=== PATIENT | female | born 1960 | race Caucasian/White ===

== ENCOUNTER 2017-05-11 23:27 | Emergency (ER) | payer OTHER ==
[~2017-05-11] VITALS: Ht 165.1 cm; Wt 106.8 kg
[~2017-05-11 23:27] MED LIST: NOCURR
[2017-05-12] MEDS ORDERED: ALBU8HFA IH (00:25)
[2017-05-12] MEDS ORDERED: [UNRECOGNIZED DRUG - REMARK] PO (00:25)
[2017-05-12] MEDS ORDERED: TraMADol HCL 50 MG TABLET PO ONE (05:00)
[2017-05-12] MEDS ORDERED: AMOXICILLIN TRIHYDRATE 250 MG CAPSULE PO ONE (05:00)
[2017-05-12 05:25] VITALS: BP 160/90
== END 2017-05-12 05:40 | disposition home or self-care (01) ==
LOC: EMS 23:28
DX: H65.92 Unspecified nonsuppurative otitis media, left ear (principal); R59.1 Generalized enlarged lymph nodes; I10 Essential (primary) hypertension; E03.9 Hypothyroidism, unspecified; F17.210 Nicotine dependence, cigarettes, uncomplicated; F12.90 Cannabis use, unspecified, uncomplicated; Z88.1 Allergy status to other antibiotic agents
CPT/HCPCS: 99283

== ENCOUNTER 2018-12-10 18:31 | Emergency (ER) | payer OTHER ==
[~2018-12-10] VITALS: Ht 162.6 cm; Wt 86.4 kg
[~2018-12-10 18:31] MED LIST changes: +ALBU8HFA IH; -NOCURR; +[UNRECOGNIZED DRUG - REMARK] PO
[2018-12-10] MEDS ORDERED: KETOROLAC TROMETHAMINE 10 MG TABLET PO ONE (21:00)
[2018-12-10 23:46] VITALS: BP 119/71
== END 2018-12-10 23:47 | disposition home or self-care (01) ==
LOC: EMS 18:32
DX: S93.402A Sprain of unspecified ligament of left ankle, initial encounter (principal); M19.90 Unspecified osteoarthritis, unspecified site; M79.642 Pain in left hand; J44.9 Chronic obstructive pulmonary disease, unspecified; I10 Essential (primary) hypertension; E03.9 Hypothyroidism, unspecified; F17.210 Nicotine dependence, cigarettes, uncomplicated; Z88.1 Allergy status to other antibiotic agents; X50.1XXA Overexertion from prolonged static or awkward postures, initial encounter; Y93.89 Activity, other specified; Y92.89 Other specified places as the place of occurrence of the external cause; Y99.8 Other external cause status
CPT/HCPCS: 29515

== ENCOUNTER 2019-04-23 22:34 | Emergency (ER) | payer OTHER ==
[~2019-04-23] VITALS: Ht 162.6 cm; Wt 86.4 kg
[2019-04-23 23:17] VITALS: BP 142/92
[2019-04-23] MEDS ORDERED: LISI-662 PO (23:30)
== END 2019-04-24 02:02 | disposition left against medical advice (07) ==
LOC: EMS 22:36
DX: H57.12 Ocular pain, left eye (principal); I10 Essential (primary) hypertension; E03.9 Hypothyroidism, unspecified; F17.210 Nicotine dependence, cigarettes, uncomplicated; Z53.21 Procedure and treatment not carried out due to patient leaving prior to being seen by health care provider

== ENCOUNTER 2019-09-25 04:10 | Emergency (ER) | payer OTHER ==
[~2019-09-25] VITALS: Ht 162.6 cm; Wt 101.4 kg
[~2019-09-25 04:10] MED LIST changes: +LISI-662 PO
[2019-09-25] MEDS ORDERED: PredniSONE 20 MG TABLET PO ONE (05:15)
[2019-09-25] MEDS ORDERED: TiZANidine HCL 4 MG TABLET PO ONE (05:15)
[2019-09-25] MEDS ORDERED: ALBUTEROL SULFATE 2.5 MG/0.5 ML NEB SOLUTION NEB ONE (05:15)
[2019-09-25 07:03] VITALS: BP 142/84
== END 2019-09-25 07:07 | disposition home or self-care (01) ==
LOC: EMS 04:10
DX: M50.30 Other cervical disc degeneration, unspecified cervical region (principal); R06.2 Wheezing; R06.00 Dyspnea, unspecified; E03.9 Hypothyroidism, unspecified; I10 Essential (primary) hypertension; F12.90 Cannabis use, unspecified, uncomplicated; F17.210 Nicotine dependence, cigarettes, uncomplicated; Z85.89 Personal history of malignant neoplasm of other organs and systems; Z88.8 Allergy status to other drugs, medicaments and biological substances
CPT/HCPCS: 72125; 94640; 99284; J7512